=== PATIENT | male | born 1990 | race Caucasian/White ===

== ENCOUNTER → 2018-01-11 | Emergency (ER) | payer OTHER ==
[~2018-01-11] VITALS: Ht 188 cm; Wt 104.3 kg
== END | disposition home or self-care (01) ==
LOC: ER 17:37
DX: K29.60 Other gastritis without bleeding (principal)

== ENCOUNTER 2018-06-06 02:07 | Emergency (ER) | payer OTHER ==
[~2018-06-06] VITALS: Ht 188 cm; Wt 93.0 kg
[2018-06-06] MEDS ORDERED: TRAMADOL HCL50 MG PO (05:32)
[2018-06-06] MEDS ORDERED: AMOX-CLAV 875-1 EACH PO (05:32)
[2018-06-06] MEDS ORDERED: INTESTINEX680 M1 PO (05:32)
[2018-06-06] MEDS ORDERED: CELEBREX100 MG PO (05:32)
[2018-06-06] MEDS ORDERED: STRIBILD TABLE1 EACH PO (05:32)
== END 2018-06-06 18:44 | disposition home or self-care (01) ==
LOC: ER 02:07
DX: S68.114A Complete traumatic metacarpophalangeal amputation of right ring finger, initial encounter (principal); Y04.1XXA Assault by human bite, initial encounter; Y04.2XXA Assault by strike against or bumped into by another person, initial encounter; Y93.89 Activity, other specified; Y92.89 Other specified places as the place of occurrence of the external cause; Y99.8 Other external cause status

== ENCOUNTER → 2022-10-06 | Outpatient (CLI) | payer OTHER ==
[~2022-10-06] MED LIST: AMOX-CLAV 875-1 EACH PO; CELEBREX100 MG PO; INTESTINEX680 M1 PO; STRIBILD TABLE1 EACH PO; TRAMADOL HCL50 MG PO
== END | disposition home or self-care (01) ==
LOC: LAB 06:15
PROVIDERS: ATTEND Obstetrics & Gynecology
DX: Z20.828 Contact with and (suspected) exposure to other viral communicable diseases (principal); Z20.818 Contact with and (suspected) exposure to other bacterial communicable diseases